=== PATIENT | female | born 1955 | race Two or more races ===

== ENCOUNTER 2017-02-12 17:36 | Emergency (ER) | payer BC ==
[~2017-02-12] VITALS: Ht 165.1 cm; Wt 63.5 kg
[~2017-02-12 17:36] MED LIST: ALEN70TA45 PO; AMLO5TAB2 PO; BUPR150T10 PO; CHLO1CAP28 PO; DICL100G3 TP; ESTR-7 PO; FOLI0.8T PO; GABA600T2 PO; LEVO50TA PO; LORA10TA7 PO; LORA1TAB PO; METH2.5T PO; OMEP40CA37 PO; TRAM50TA2 PO
--- NOTE | 2017-02-12 17:40 | NUR ---
DR ALLEN AT BEDSIDE FOR EVAL.
--- NOTE | 2017-02-12 17:45 | NUR ---
PT BIBRA FROM HOME TO ER BED 10. C/O BILAT HIP PAIN R/T BILAT KNEE X 3 DAYS. PT STATES WORST TODAY AND SHE RAN OUT OF [place] FOR PAIN MANAGEMENT. PT DENIES ANY RECENT TRAUMA. STABLE VITALS. NAD NOTED. AWAITING MD ROBERSON.
--- NOTE | 2017-02-12 17:46 | NUR ---
TEST ENGINEERING TECHNICIAN AT BEDSIDE FOR BLOOD DRAW.
[2017-02-12 17:51] LABS: BASOPHILS # (AUTO) 0.1 /CMM (0.0-0.2); BASOPHILS % (AUTO) 0.6 % (0.0-2.0); EOSINOPHILS # (AUTO) 0.2 /CMM (0.0-0.7); EOSINOPHILS % (AUTO) 1.5 % (0.0-6.0); HEMATOCRIT 37 % (33-45); HEMOGLOBIN 12.5 g/dL (11.5-14.8); LYMPHOCYTES # (AUTO) 2.6 /CMM (0.8-4.8); LYMPHOCYTES % (AUTO) 22.9 % (20.0-44.0); MEAN CORPUSCULAR HEMOGLOBIN 33 PG (26.0-33.0); MEAN CORPUSCULAR HGB CONC 34 g/dl (31.0-36.0); MEAN CORPUSCULAR VOLUME 99 fL (82-100); MONOCYTES # (AUTO) 0.9 /CMM (0.1-1.30); MONOCYTES % (AUTO) 8.3 % (2.0-12.0); NEUTROPHILS # (AUTO) 7.6 /CMM (1.8-8.9); NEUTROPHILS % (AUTO) 66.7 % (43.0-81.0); PLATELET COUNT (AUTO) 390 /CMM (150-450); RDW COEFFICIENT OF VARIATION 15.1 (11.5-15.0); RED BLOOD CELL COUNT(AUTO) 3.77 MIL/uL (4.0-5.2); WHITE BLOOD COUNT (AUTO) 11.4 K/uL (4.3-11.0)
[2017-02-12] MEDS ORDERED: HYDROCODONE/APAP 5/325MG 1 EACH TABLET ONE (17:51)
[2017-02-12] MEDS ORDERED: HYDROCODONE/APAP 5/325MG 1 EACH TABLET PO ONE (18:00)
[2017-02-12 18:03] LABS: CALCIUM, SERUM 9.2 mg/dL (8.5-10.1); CARBON DIOXIDE 29 mmol/L (21-32); CHLORIDE 101 mmol/L (98-107); GLUCOSE 108 mg/dL (74-106); POTASSIUM 3.4 mmol/L (3.5-5.1); SODIUM SERUM 138 mmol/L (136-145); UREA NITROGEN, BLOOD 11 mg/dL (7-18)
[2017-02-12 18:08] LABS: ALANINE AMINOTRANSFERASE 26 U/L (12-78); ALBUMIN 3.6 g/dL (3.4-5.0); ALKALINE PHOSPHATASE 92 U/L (46-116); ASPARTATE AMINOTRANSFERASE 27 U/L (15-37); BILIRUBIN,DIRECT 0.1 mg/dL (0.0-0.2); BILIRUBIN,TOTAL 0.3 mg/dL (0.2-1.0); TOTAL PROTEIN, SERUM 6.3 g/dL (6.4-8.2)
--- NOTE | 2017-02-12 18:09 | NUR ---
RADIOLOGY AT BEDSIDE FOR PELVIC AND CHEST XRAY.
[2017-02-12 18:16] LABS: TROPONIN I < 0.017 ng/mL (0.00-0.056)
[2017-02-12 18:17] LABS: INR 0.91 (0.87-1.13); PROTHROMBIN TIME 9.5 SECS (9.5-12.7)
[2017-02-12 19:31] VITALS: BP 142/76
--- NOTE | 2017-02-12 19:31 | NUR ---
Patient discharged to home in stable condition. Written and verbal after care instructions given. Patient verbalizes understanding of instruction.
== END 2017-02-12 19:32 | disposition home or self-care (01) ==
LOC: ER 17:39
DX: M25.551 Pain in right hip (principal); G89.29 Other chronic pain; D72.829 Elevated white blood cell count, unspecified; I10 Essential (primary) hypertension; M06.9 Rheumatoid arthritis, unspecified; R79.1 Abnormal coagulation profile; Z88.6 Allergy status to analgesic agent
CPT/HCPCS: 36415; 71010; 72170; 80048; 80076; 84484; 85025; 85730; 93005; 99285; A4606; Z7610